=== PATIENT | male | born 1930 | race Caucasian/White ===

== ENCOUNTER → 2016-12-08 | Outpatient (CLI) | payer MEDICARE, BC ==
[~2016-12-08] MED LIST: ASPIRIN 32325 MG/TAB PO; ASPIRIN 81M81 MG/TA2 PO; B-121000 MCG PO; CARAFATE S1 GM/10 ML PO; CELEXA10 MG PO; CIPRO 250MG TA250 MG PO; COLACE 100100 MG/CAP PO; DIFLUCAN200 MG PO; DULCOLAX S10 MG/SUPP RC; FERRATE325 MG PO; FERROUS SU325 MG/TAB PO; HALCION0.25 MG PO; LIPITOR 40MG TA40 MG PO; MILK OF MA400 MG/52 PO; MIRALAX PA17 GM/Dose PO; MYLANTA 150 ML150 M1 PO; MYLANTA MAXIMU355 ML PO; NORCO 325 MG-51 TAB PO; OSCAL 500 TAB500 MG PO; PLAVIX 75MG TAB75 MG PO; PRILOSEC 20MG20 MG PO; PROTONIX20 MG PO; RAPAFLO8 MG PO; REMERON 15M15 MG/TA1 PO; ROBITUSSIN DM 105 ML PO; SENOKOT S 50 MG1 TAB PO; THERAGRAN TAB1 UDTAB PO; TYLENOL 325MG325 MG PO; VESICARE 5MG5 MG PO; VITAMIN B121000 MC2 PO; VITAMIN C500 MG PO; ZOCOR
[2016-12-08 10:37] LABS: BASO % 0.7 % (0.0-2.0); EOS # 0.1 (0.0-0.7); EOS % 2.2 % (0-4.0); GRAN # 2.6 (1.4-6.5); LYMPH # 0.9 (1.2-3.4); LYMPH % 22.9 % (20.0-51.0); MEAN CELL VOLUME 88 fl (80.0-100.0); MEAN CORPUSCULAR HGB CONC 34 g/dl (33.0-37.0); MEAN PLATELET VOLUME 10.8 fl (7.4-10.4); MONO # 0.4 (0.1-0.6); MONO % 8.7 % (1.7-9.3); PLATELET COUNT 164 K/mm3 (130-400); RED BLOOD COUNT 3.35 M/mm3 (4.20-5.60); REDCELL DISTRIBUTION WIDTH-CV 13.6 % (11.5-14.5)
[2016-12-08 10:40] LABS: HEMATOCRIT 29.4 % (42.0-52.0); MEAN CORPUSCULAR HEMOGLOBIN 30 pg (27.0-31.0)
[2016-12-08 11:36] LABS: ADJUSTED CALCIUM 9.5 mg/dL (8.4-10.2); BILIRUBIN,TOTAL 0.4 mg/dL (0.0-1.0); CALCIUM 8.7 mg/dL (8.4-10.2); CREATININE, serum 1.1 mg/dL (0.66-1.25); POTASSIUM 4.7 mmol/L (3.4-5.0)
== END ==
LOC: ZLAB.STJ 09:59
PROVIDERS: Internal Medicine
DX: D64.89 Other specified anemias (principal)

== ENCOUNTER → 2017-02-21 | Outpatient (REF) | LOC: ZLAB.STJ 09:35 | DX: Z01.89 Encounter for other specified special examinations (principal) ==

== ENCOUNTER 2017-11-28 18:33 | Emergency (ER) | payer MEDICARE, BC ==
[~2017-11-28] VITALS: Ht 170.2 cm; Wt 72.7 kg
[2017-11-28 19:33] LABS: BASO % 0.3 % (0.0-2.0); GRAN % 90.8 % (42.2-75.2); HEMOGLOBIN 12.3 g/dl (13.5-18.0); LYMPH # 0.3 (1.2-3.4); LYMPH % 4.3 % (20.0-51.0); MEAN CELL VOLUME 89 fl (80.0-100.0); MEAN CORPUSCULAR HEMOGLOBIN 30 pg (27.0-31.0); MEAN CORPUSCULAR HGB CONC 33 g/dl (33.0-37.0); MEAN PLATELET VOLUME 10.5 fl (7.4-10.4); MONO # 0.3 (0.1-0.6); MONO % 3.9 % (1.7-9.3); PLATELET COUNT 184 K/mm3 (130-400); RED BLOOD COUNT 4.15 M/mm3 (4.20-5.60); REDCELL DISTRIBUTION WIDTH-CV 13.8 % (11.5-14.5)
[2017-11-28 19:34] LABS: HEMATOCRIT 36.8 % (42.0-52.0)
[2017-11-28 19:40] LABS: ALBUMIN 4.6 gm/dL (3.5-5.0); BILIRUBIN,TOTAL 0.7 mg/dL (0.0-1.0); CALCIUM 9.8 mg/dL (8.4-10.2); CREATININE, serum 1.37 mg/dL (0.66-1.25); POTASSIUM 4.6 mmol/L (3.4-5.0); TOTAL PROTEIN 8.1 gm/dL (6.4-8.2)
[2017-11-28 20:26] LABS: STREP SCREEN NEGATIVE
[2017-11-28 20:36] LABS: INFLUENZA A POSITIVE; INFLUENZA B NEGATIVE
[2017-11-28] MEDS ORDERED: TAMIFLU 75MG75 MG PO (21:31)
[2017-11-28 21:58] VITALS: BP 147/71; PULSE 84
[2017-11-28 22:20] VITALS: TEMP 97.8
== END 2017-11-28 22:21 | disposition home or self-care (01) ==
LOC: COL.ER 18:33
PROVIDERS: Emergency Medicine
DX: J10.1 Influenza due to other identified influenza virus with other respiratory manifestations (principal); I25.10 Atherosclerotic heart disease of native coronary artery without angina pectoris; I25.2 Old myocardial infarction; E78.5 Hyperlipidemia, unspecified; Z85.46 Personal history of malignant neoplasm of prostate; Z86.73 Personal history of transient ischemic attack (TIA), and cerebral infarction without residual deficits; Z79.82 Long term (current) use of aspirin; Z95.5 Presence of coronary angioplasty implant and graft
CPT/HCPCS: J7030

== ENCOUNTER → 2018-02-14 | Outpatient (REF) ==
[~2018-02-14] MED LIST changes: +TAMIFLU 75MG75 MG PO
[2018-02-14 08:43] LABS: BASO % 0.9 % (0.0-2.0); EOS # 0.1 (0.0-0.7); EOS % 2.2 % (0-4.0); GRAN # 2.8 (1.4-6.5); GRAN % 61.9 % (42.2-75.2); HEMOGLOBIN 12.3 g/dl (13.5-18.0); LYMPH # 1.2 (1.2-3.4); LYMPH % 26.4 % (20.0-51.0); MEAN CELL VOLUME 88 fl (80.0-100.0); MEAN CORPUSCULAR HEMOGLOBIN 30 pg (27.0-31.0); MEAN CORPUSCULAR HGB CONC 34 g/dl (33.0-37.0); MEAN PLATELET VOLUME 11.2 fl (7.4-10.4); MONO # 0.4 (0.1-0.6); MONO % 7.9 % (1.7-9.3); PLATELET COUNT 177 K/mm3 (130-400); RED BLOOD COUNT 4.16 M/mm3 (4.20-5.60); REDCELL DISTRIBUTION WIDTH-CV 13.7 % (11.5-14.5)
[2018-02-14 08:51] LABS: HEMATOCRIT 36.5 % (42.0-52.0)
[2018-02-14 09:11] LABS: ALBUMIN 3.9 gm/dL (3.5-5.0); BILIRUBIN,TOTAL 0.3 mg/dL (0.0-1.0); CALCIUM 9.1 mg/dL (8.4-10.2); CREATININE, serum 1.25 mg/dL (0.66-1.25); POTASSIUM 4.9 mmol/L (3.4-5.0); TOTAL PROTEIN 7.1 gm/dL (6.4-8.2)
== END ==
LOC: ZLAB.STJ 08:33
PROVIDERS: Internal Medicine
DX: D64.9 Anemia, unspecified (principal)

== ENCOUNTER 2018-04-26 05:34 | Emergency (ER) | payer MEDICARE, BC ==
[~2018-04-26] VITALS: Ht 152 cm; Wt 56.8 kg
[2018-04-26 05:37] VITALS: TEMP 98.3
[2018-04-26 06:17] LABS: COLLECTION METHOD CLEAN CATCH
[2018-04-26 06:27] LABS: MUCOUS Present /lpf; PH 5 (5-8); SQUAMOUS EPITHELIAL None Seen /hpf; URINE APPEARANCE Hazy; URINE BACTERIA Rare /hpf; URINE BILIRUBIN Negative (NEGATIVE); URINE BLOOD 2+ (NEGATIVE); URINE COLOR Yellow; URINE GLUCOSE Negative (NEGATIVE); URINE KETONE Negative (NEGATIVE); URINE LEUKOCYTE ESTERASE 3+ (NEGATIVE); URINE NITRATE Positive (NEGATIVE); URINE PROTEIN(semi-quant) Negative (NEGATIVE); URINE UROBILINOGEN Negative (NEGATIVE)
[2018-04-26 06:33] LABS: BASO % 0.4 % (0.0-2.0); EOS # 0.1 (0.0-0.7); EOS % 0.8 % (0-4.0); GRAN # 5.1 (1.4-6.5); GRAN % 65.3 % (42.2-75.2); HEMATOCRIT 33.9 % (42.0-52.0); HEMOGLOBIN 11.6 g/dl (13.5-18.0); LYMPH # 2.2 (1.2-3.4); MEAN CELL VOLUME 88 fl (80.0-100.0); MEAN CORPUSCULAR HEMOGLOBIN 30 pg (27.0-31.0); MEAN CORPUSCULAR HGB CONC 34 g/dl (33.0-37.0); MEAN PLATELET VOLUME 9.4 fl (7.4-10.4); MONO # 0.4 (0.1-0.6); PLATELET COUNT 257 K/mm3 (130-400); RED BLOOD COUNT 3.85 M/mm3 (4.20-5.60); REDCELL DISTRIBUTION WIDTH-CV 13.5 % (11.5-14.5)
[2018-04-26 06:38] LABS: INR 1.2 (0.8-3.0); PROTHROMBIN TIME 13.1 SECONDS (9.7-12.8)
[2018-04-26 06:41] LABS: PARTIAL THROMBOPLASTIN TIME 65.9 SECONDS (26.0-37.0)
[2018-04-26 06:48] LABS: CREATININE, serum 1.31 mg/dL (0.66-1.25); POTASSIUM 4.5 mmol/L (3.4-5.0)
[2018-04-26 07:20] LABS: ALBUMIN 3.7 gm/dL (3.5-5.0); BILIRUBIN UNCONJUGATED 0.1 mg/dL (0.0-1.1); BILIRUBIN,DIRECT 0.3 mg/dL (0.0-0.4); BILIRUBIN,TOTAL 0.4 mg/dL (0.0-1.0); TOTAL PROTEIN 7.2 gm/dL (6.4-8.2)
[2018-04-26] MEDS ORDERED: OMNICEF 300MG300 MG PO (07:30)
[2018-04-26 08:40] VITALS: BP 167/72; PULSE 85
== END 2018-04-26 08:48 | disposition home or self-care (01) ==
LOC: COL.ER 05:34
PROVIDERS: Emergency Medicine
DX: S01.81XA Laceration without foreign body of other part of head, initial encounter (principal); I25.10 Atherosclerotic heart disease of native coronary artery without angina pectoris; N39.0 Urinary tract infection, site not specified; Z86.73 Personal history of transient ischemic attack (TIA), and cerebral infarction without residual deficits; Z23 Encounter for immunization; Z79.82 Long term (current) use of aspirin; Z79.02 Long term (current) use of antithrombotics/antiplatelets; W19.XXXA Unspecified fall, initial encounter; W22.8XXA Striking against or struck by other objects, initial encounter
CPT/HCPCS: J0696; J7050

== ENCOUNTER 2018-06-13 17:14 | Emergency (ER) | payer MEDICARE, BC ==
[~2018-06-13] VITALS: Ht 165.1 cm; Wt 66.4 kg
[~2018-06-13 17:14] MED LIST changes: +OMNICEF 300MG300 MG PO
[2018-06-13 17:21] VITALS: TEMP 100.7
[2018-06-13] MEDS ORDERED: TYLENOL 500MG500 MG PO (18:18)
[2018-06-13] MEDS ORDERED: IMODIUM 2MG CAPS2 MG PO (18:21)
[2018-06-13] MEDS ORDERED: DEBROX OT (18:22)
[2018-06-13] MEDS ORDERED: THERA1 TAB PO (18:23)
[2018-06-13 18:24] LABS: BASO % 0.5 % (0.0-2.0); EOS # 0.1 (0.0-0.7); EOS % 1.2 % (0-4.0); GRAN # 4.8 (1.4-6.5); GRAN % 74.1 % (42.2-75.2); LYMPH # 0.8 (1.2-3.4); LYMPH % 12.9 % (20.0-51.0); MEAN CELL VOLUME 91 fl (80.0-100.0); MEAN CORPUSCULAR HGB CONC 33 g/dl (33.0-37.0); MEAN PLATELET VOLUME 10.5 fl (7.4-10.4); MONO # 0.7 (0.1-0.6); PLATELET COUNT 206 K/mm3 (130-400); RED BLOOD COUNT 3.16 M/mm3 (4.20-5.60); REDCELL DISTRIBUTION WIDTH-CV 13.7 % (11.5-14.5)
[2018-06-13] MEDS ORDERED: VITAMIN B-1000 MCG/T PO (18:24)
[2018-06-13] MEDS ORDERED: RISPERDAL 1M1 MG/TAB (18:25)
[2018-06-13 18:30] LABS: HEMATOCRIT 28.6 % (42.0-52.0); HEMOGLOBIN 9.4 g/dl (13.5-18.0); MEAN CORPUSCULAR HEMOGLOBIN 30 pg (27.0-31.0)
[2018-06-13 18:39] LABS: ALBUMIN 3.6 gm/dL (3.5-5.0); BILIRUBIN,TOTAL 0.4 mg/dL (0.0-1.0); CALCIUM 8.7 mg/dL (8.4-10.2); CREATININE, serum 1.43 mg/dL (0.66-1.25); POTASSIUM 4.5 mmol/L (3.4-5.0); TOTAL PROTEIN 6.9 gm/dL (6.4-8.2)
[2018-06-13 19:26] LABS: INR 1.3 (0.8-3.0); PROTHROMBIN TIME 14.4 SECONDS (9.7-12.8)
[2018-06-13 19:46] LABS: TROPONIN-I 4.88 ng/mL (0.000-0.034)
[2018-06-13 20:15] LABS: ARTERIAL BLD GAS O2 SATURATION 88.9 % (92-100); ARTERIAL BLD GAS TCO2 CT 24.1; ARTERIAL BLOOD GAS BASE EXCESS -2.5 (-2-2); ARTERIAL BLOOD GAS HCO3 22.8 meq/L (22-26); ARTERIAL BLOOD GAS PCO2 41.3 mmHg (35-45); ARTERIAL BLOOD GAS PO2 62.8 mmHg (80-100); ARTERIAL BLOOD GAS pH 7.36 (7.35-7.45)
[2018-06-13 21:09] LABS: COLLECTION METHOD CLEAN CATCH
[2018-06-13 21:20] LABS: PH 5 (5-8); SQUAMOUS EPITHELIAL None Seen /hpf; URINE APPEARANCE Hazy; URINE BACTERIA None Seen /hpf; URINE BILIRUBIN Negative (NEGATIVE); URINE BLOOD Negative (NEGATIVE); URINE COLOR Yellow; URINE GLUCOSE Negative (NEGATIVE); URINE KETONE Negative (NEGATIVE); URINE LEUKOCYTE ESTERASE Negative (NEGATIVE); URINE NITRATE Negative (NEGATIVE); URINE PROTEIN(semi-quant) Negative (NEGATIVE); URINE RBC 0-2 /hpf; URINE UROBILINOGEN Negative (NEGATIVE)
[2018-06-13 22:37] VITALS: BP 104/50; PULSE 72
== END 2018-06-13 22:43 | disposition short-term general hospital (02) ==
LOC: COL.ER 17:14
PROVIDERS: Emergency Medicine
DX: J69.0 Pneumonitis due to inhalation of food and vomit (principal); I21.4 Non-ST elevation (NSTEMI) myocardial infarction; I25.10 Atherosclerotic heart disease of native coronary artery without angina pectoris; E78.5 Hyperlipidemia, unspecified; Z86.73 Personal history of transient ischemic attack (TIA), and cerebral infarction without residual deficits; Z98.890 Other specified postprocedural states; Z85.46 Personal history of malignant neoplasm of prostate; Z95.5 Presence of coronary angioplasty implant and graft; Z79.82 Long term (current) use of aspirin; Z79.02 Long term (current) use of antithrombotics/antiplatelets
CPT/HCPCS: J0696; J1644; J7030

== ENCOUNTER → 2018-08-20 | Outpatient (CLI) | payer MEDICARE, BC ==
[~2018-08-20] MED LIST changes: +DEBROX OT; +IMODIUM 2MG CAPS2 MG PO; +RISPERDAL 1M1 MG/TAB; +THERA1 TAB PO; +TYLENOL 500MG500 MG PO; +VITAMIN B-1000 MCG/T PO
[2018-08-20 14:24] LABS: COLLECTION METHOD CLEAN CATCH
[2018-08-20 14:33] LABS: PH 5 (5-8); URINE APPEARANCE Turbid; URINE BACTERIA Moderate /hpf; URINE BILIRUBIN Negative (NEGATIVE); URINE BLOOD 3+ (NEGATIVE); URINE COLOR Amber; URINE GLUCOSE Negative (NEGATIVE); URINE KETONE Negative (NEGATIVE); URINE LEUKOCYTE ESTERASE 2+ (NEGATIVE); URINE NITRATE Negative (NEGATIVE); URINE PROTEIN(semi-quant) 2+ (NEGATIVE); URINE RBC >50 /hpf; URINE UROBILINOGEN Negative (NEGATIVE)
== END ==
LOC: ZLAB.STJ 14:17
PROVIDERS: Family Medicine
DX: N39.0 Urinary tract infection, site not specified (principal)

== ENCOUNTER → 2018-09-01 | Outpatient (CLI) | payer MEDICARE, BC ==
[~2018-09-01] MED LIST changes: +ALMACONE 360 M360 ML PO; +ATROVENT I0.2 MG/1 M IH; +BIOTENE ORALBAL42 GM MM; +GOOD NEIGH1200 MG/15 PO; +LOPRESSOR 225 MG/TAB PO; +PHENERGAN 25 TA25 MG PO; +RISPERDAL 0.5M0.5 MG PO; +SENOKOT8.6 MG PO; +TESSALON P100 MG/CAP PO
[2018-09-01 19:34] LABS: BASO # 0.1 (0.0-0.2); BASO % 0.9 % (0.0-2.0); EOS # 0.2 (0.0-0.7); EOS % 3.1 % (0-4.0); GRAN # 4.4 (1.4-6.5); GRAN % 69.1 % (42.2-75.2); LYMPH # 1.2 (1.2-3.4); LYMPH % 19.2 % (20.0-51.0); MEAN CELL VOLUME 90 fl (80.0-100.0); MEAN CORPUSCULAR HGB CONC 32 g/dl (33.0-37.0); MEAN PLATELET VOLUME 10.5 fl (7.4-10.4); MONO # 0.5 (0.1-0.6); MONO % 7.2 % (1.7-9.3); PLATELET COUNT 309 K/mm3 (130-400); RED BLOOD COUNT 2.85 M/mm3 (4.20-5.60); REDCELL DISTRIBUTION WIDTH-CV 15.9 % (11.5-14.5)
[2018-09-01 19:36] LABS: HEMATOCRIT 25.5 % (42.0-52.0); HEMOGLOBIN 8.1 g/dl (13.5-18.0); MEAN CORPUSCULAR HEMOGLOBIN 28 pg (27.0-31.0)
== END ==
LOC: ZLAB.STJ 19:10
PROVIDERS: Internal Medicine
DX: K92.2 Gastrointestinal hemorrhage, unspecified (principal); N39.0 Urinary tract infection, site not specified

== ENCOUNTER → 2018-09-04 | Outpatient (CLI) | payer MEDICARE, BC ==
[~2018-09-04] MED LIST changes: +CEFTIN 250250 MG/TAB PO; +FERRO-TIME325 MG PO
[2018-09-04 10:32] LABS: COLLECTION METHOD CLEAN CATCH
[2018-09-04 10:47] LABS: BASO % 0.5 % (0.0-2.0); EOS # 0.2 (0.0-0.7); EOS % 3.7 % (0-4.0); GRAN # 3.7 (1.4-6.5); GRAN % 67.4 % (42.2-75.2); LYMPH # 1.1 (1.2-3.4); LYMPH % 20.9 % (20.0-51.0); MEAN CELL VOLUME 89 fl (80.0-100.0); MEAN CORPUSCULAR HGB CONC 32 g/dl (33.0-37.0); MEAN PLATELET VOLUME 10.6 fl (7.4-10.4); MONO # 0.4 (0.1-0.6); MONO % 7.1 % (1.7-9.3); PLATELET COUNT 284 K/mm3 (130-400); RED BLOOD COUNT 2.75 M/mm3 (4.20-5.60); REDCELL DISTRIBUTION WIDTH-CV 15.8 % (11.5-14.5)
[2018-09-04 10:54] LABS: HEMATOCRIT 24.4 % (42.0-52.0); HEMOGLOBIN 7.7 g/dl (13.5-18.0); MEAN CORPUSCULAR HEMOGLOBIN 28 pg (27.0-31.0)
[2018-09-04 11:17] LABS: MUCOUS Present /lpf; PH 5 (5-8); SQUAMOUS EPITHELIAL None Seen /hpf; URINE APPEARANCE Turbid; URINE BACTERIA Moderate /hpf; URINE BILIRUBIN Negative (NEGATIVE); URINE BLOOD 2+ (NEGATIVE); URINE COLOR Amber; URINE GLUCOSE Negative (NEGATIVE); URINE KETONE Negative (NEGATIVE); URINE LEUKOCYTE ESTERASE 2+ (NEGATIVE); URINE NITRATE Negative (NEGATIVE); URINE PROTEIN(semi-quant) 2+ (NEGATIVE); URINE RBC None Seen /hpf; URINE UROBILINOGEN Negative (NEGATIVE)
== END ==
LOC: ZLAB.STJ 09:57
PROVIDERS: Internal Medicine
DX: I10 Essential (primary) hypertension (principal); R32 Unspecified urinary incontinence

== ENCOUNTER 2018-09-15 21:28 | Emergency (ER) | payer MEDICARE, BC ==
[~2018-09-15] VITALS: Ht 162.6 cm; Wt 63.6 kg
[~2018-09-15 21:28] MED LIST changes: +MIRTAZAPINE7.5 MG PO; +OS-CAL 500 + D1 TAB PO; -REMERON 15M15 MG/TA1 PO
[2018-09-15 21:30] VITALS: TEMP 98.6
[2018-09-15 22:04] LABS: BASO % 0.8 % (0.0-2.0); EOS # 0.3 (0.0-0.7); EOS % 5.2 % (0-4.0); GRAN # 3.3 (1.4-6.5); GRAN % 63.4 % (42.2-75.2); LYMPH # 1.2 (1.2-3.4); LYMPH % 22.8 % (20.0-51.0); MEAN CELL VOLUME 93 fl (80.0-100.0); MEAN CORPUSCULAR HGB CONC 30 g/dl (33.0-37.0); MEAN PLATELET VOLUME 9.3 fl (7.4-10.4); MONO # 0.4 (0.1-0.6); PLATELET COUNT 269 K/mm3 (130-400); RED BLOOD COUNT 2.71 M/mm3 (4.20-5.60); REDCELL DISTRIBUTION WIDTH-CV 16.5 % (11.5-14.5)
[2018-09-15 22:11] LABS: ALANINE AMINOTRANSFERASE 28 U/L (21-72); ALBUMIN 2.8 gm/dL (3.5-5.0); ALKALINE PHOSPHATASE 95 U/L (50-136); ANION GAP 4 mmol/L (7-16); AST,SGOT 23 U/L (15-37); BILIRUBIN,TOTAL < 0.1 mg/dL (0.0-1.0); BLOOD UREA NITROGEN 22 mg/dL (9-20); CALCIUM 8.2 mg/dL (8.4-10.2); CARBON DIOXIDE 27 mmol/L (22-30); CHLORIDE 108 mmol/L (98-107); CREATININE, serum 1.13 mg/dL (0.66-1.25); GLUCOSE 99 mg/dL (74-106); POTASSIUM 4.4 mmol/L (3.4-5.0); SODIUM 139 mmol/L (137-145); TOTAL PROTEIN 5.8 gm/dL (6.4-8.2)
[2018-09-15 22:21] LABS: HEMATOCRIT 25.3 % (42.0-52.0); HEMOGLOBIN 7.7 g/dl (13.5-18.0); MEAN CORPUSCULAR HEMOGLOBIN 28 pg (27.0-31.0)
[2018-09-15] MEDS ORDERED: CENTANY2% TOP (22:42)
[2018-09-15] MEDS ORDERED: NORCO 325 MG-51 TAB PO (22:58)
[2018-09-16 00:04] LABS: COLLECTION METHOD CATHETER
[2018-09-16 00:17] LABS: MUCOUS Present /lpf; PH 5 (5-8); SQUAMOUS EPITHELIAL None Seen /hpf; URINE APPEARANCE Clear; URINE BACTERIA None Seen /hpf; URINE BILIRUBIN Negative (NEGATIVE); URINE BLOOD Negative (NEGATIVE); URINE COLOR Amber; URINE GLUCOSE Negative (NEGATIVE); URINE KETONE Negative (NEGATIVE); URINE LEUKOCYTE ESTERASE Trace (NEGATIVE); URINE NITRATE Positive (NEGATIVE); URINE PROTEIN(semi-quant) Negative (NEGATIVE); URINE UROBILINOGEN >=4.0 mg/dL (NEGATIVE)
[2018-09-16] MEDS ORDERED: BACTRIM DS 8001 TAB PO (00:33)
[2018-09-16 02:30] VITALS: BP 136/70; PULSE 77
== END 2018-09-16 02:30 | disposition home or self-care (01) ==
LOC: COL.ER 21:28
PROVIDERS: Emergency Medicine; Family Medicine
DX: L89.229 Pressure ulcer of left hip, unspecified stage (principal); N39.0 Urinary tract infection, site not specified; R33.9 Retention of urine, unspecified; Z79.82 Long term (current) use of aspirin
CPT/HCPCS: A4216; J0696; J7030

== ENCOUNTER → 2018-09-21 | Outpatient (REF) ==
[~2018-09-21] MED LIST changes: +BACTRIM DS 8001 TAB PO; +CENTANY2% TOP
[2018-09-21 11:44] LABS: ALBUMIN 3.2 gm/dL (3.5-5.0); BILIRUBIN,TOTAL 0.2 mg/dL (0.0-1.0); CALCIUM 8.8 mg/dL (8.4-10.2); CHOLESTEROL RISK RATIO 5.8; CREATININE, serum 1.7 mg/dL (0.66-1.25); POTASSIUM 5.6 mmol/L (3.4-5.0); TOTAL PROTEIN 6.5 gm/dL (6.4-8.2)
== END ==
LOC: ZLAB.STJ 11:16
PROVIDERS: Internal Medicine Cardiovascular Disease
DX: E78.2 Mixed hyperlipidemia (principal)

== ENCOUNTER 2018-09-30 22:42 | Emergency (ER) | payer MEDICARE, BC ==
[~2018-09-30] VITALS: Ht 162.6 cm; Wt 61.4 kg
[2018-09-30 22:48] VITALS: TEMP 98.1
[2018-09-30 23:28] LABS: BASO % 0.6 % (0.0-2.0); EOS # 0.3 (0.0-0.7); EOS % 4.2 % (0-4.0); GRAN # 4.2 (1.4-6.5); GRAN % 65.9 % (42.2-75.2); HEMATOCRIT 27.5 % (42.0-52.0); HEMOGLOBIN 8.7 g/dl (13.5-18.0); LYMPH # 1.4 (1.2-3.4); LYMPH % 21.9 % (20.0-51.0); MEAN CELL VOLUME 91 fl (80.0-100.0); MEAN CORPUSCULAR HEMOGLOBIN 29 pg (27.0-31.0); MEAN CORPUSCULAR HGB CONC 32 g/dl (33.0-37.0); MEAN PLATELET VOLUME 8.8 fl (7.4-10.4); MONO # 0.4 (0.1-0.6); MONO % 6.9 % (1.7-9.3); PLATELET COUNT 352 K/mm3 (130-400); RED BLOOD COUNT 3.03 M/mm3 (4.20-5.60); REDCELL DISTRIBUTION WIDTH-CV 15.8 % (11.5-14.5)
[2018-09-30 23:38] LABS: CALCIUM 8.9 mg/dL (8.4-10.2); CREATININE, serum 1.95 mg/dL (0.66-1.25); POTASSIUM 5.2 mmol/L (3.4-5.0)
[2018-10-01] MEDS ORDERED: VITAMIN C500 MG PO (00:05)
[2018-10-01] MEDS ORDERED: IMODIUM A-D2 MG PO (00:09)
[2018-10-01 01:08] LABS: COLLECTION METHOD CATHETER
[2018-10-01 01:42] LABS: BUDDING YEAST Present /hpf; HYALINE CAST >12 /lpf; MUCOUS Present /lpf; PH 5 (5-8); SQUAMOUS EPITHELIAL 0-2 /hpf; URINE APPEARANCE Turbid; URINE BACTERIA Rare /hpf; URINE BILIRUBIN Negative (NEGATIVE); URINE BLOOD 2+ (NEGATIVE); URINE COLOR Yellow; URINE GLUCOSE Negative (NEGATIVE); URINE KETONE Negative (NEGATIVE); URINE LEUKOCYTE ESTERASE 3+ (NEGATIVE); URINE NITRATE Negative (NEGATIVE); URINE PROTEIN(semi-quant) 2+ (NEGATIVE); URINE RBC >50 /hpf; URINE UROBILINOGEN Negative (NEGATIVE)
[2018-10-01] MEDS ORDERED: BACTRIM DS 8001 TAB PO (02:10)
[2018-10-01 03:15] VITALS: BP 127/56; PULSE 88
== END 2018-10-01 03:17 | disposition home or self-care (01) ==
LOC: COL.ER 22:42
PROVIDERS: Emergency Medicine
DX: E86.0 Dehydration (principal); N39.0 Urinary tract infection, site not specified; I10 Essential (primary) hypertension; I25.10 Atherosclerotic heart disease of native coronary artery without angina pectoris; I25.2 Old myocardial infarction; F03.90 Unspecified dementia, unspecified severity, without behavioral disturbance, psychotic disturbance, mood disturbance, and anxiety; Z86.73 Personal history of transient ischemic attack (TIA), and cerebral infarction without residual deficits; Z98.890 Other specified postprocedural states; Z85.46 Personal history of malignant neoplasm of prostate
CPT/HCPCS: A4216; J0696

== ENCOUNTER 2018-10-26 11:00 | Day surgery (SDC) | payer MEDICARE, BC ==
[~2018-10-26] VITALS: Ht 165.1 cm; Wt 54.8 kg
[~2018-10-26 11:00] MED LIST changes: +IMODIUM A-D2 MG PO
[2018-10-26 11:46] VITALS: BP 96/51; PULSE 73; TEMP 97.5
[2018-10-26] MEDS ORDERED: PROTONIX20 MG PO (11:46)
== END 2018-10-26 13:50 | disposition home or self-care (01) ==
LOC: SDCO 11:00
DX: R33.9 Retention of urine, unspecified (principal); F03.90 Unspecified dementia, unspecified severity, without behavioral disturbance, psychotic disturbance, mood disturbance, and anxiety; I25.10 Atherosclerotic heart disease of native coronary artery without angina pectoris; E78.00 Pure hypercholesterolemia, unspecified; E78.5 Hyperlipidemia, unspecified; G47.00 Insomnia, unspecified; Z79.82 Long term (current) use of aspirin; Z85.46 Personal history of malignant neoplasm of prostate; Z92.3 Personal history of irradiation; Z86.73 Personal history of transient ischemic attack (TIA), and cerebral infarction without residual deficits; Z80.3 Family history of malignant neoplasm of breast; Z82.49 Family history of ischemic heart disease and other diseases of the circulatory system
CPT/HCPCS: A4314

== ENCOUNTER 2018-11-27 15:33 | Day surgery (SDC) | payer MEDICARE, BC ==
[~2018-11-27] VITALS: Ht 157.5 cm; Wt 61.4 kg
[2018-11-27] MEDS ORDERED: NORCO 325 MG-51 TAB PO (16:56)
[2018-11-27] MEDS ORDERED: VOLTAREN GEL 1%1 TU TP (17:02)
[2018-11-27 17:24] VITALS: BP 128/58; PULSE 88; TEMP 98.3
--- NOTE | 2018-11-27 17:50 | NUR ---
PROCEDURE COMPLETE. PATIENT MOANING. RANDALL CARE DONE AND BLOOD NOTED AT TIP OF PENIS. NEW DEPENDS PLACED. DRESSED BY STAFF. 16 UPPER SIOUX CATHETER PLACED WITH 10CC BALLOON. TRANSFERED TO BY TOTAL LIFT. ONCE BACK IN CHAIR, PATIENT SLEEPING.
--- NOTE | 2018-11-27 18:07 | NUR ---
[facility]IA [facility] CALLED TO MOLD CLAMPER PATIENT. PATIENT CONTINUES TO SLEEP AND DON STEPHIE CARABALLO WITH HIM SITTING AT DESK WAITING FOR RIDE.
--- NOTE | 2018-11-27 18:17 | NUR ---
RECEIVED DISCHARGE INSTRUCTIONS FROM DR SILVER. PAPERS SENT BY RESIDENTIAL SIGNED BY DR SILVER AND SENT BACK TO RESIDENTIAL. DURAN CARABALLO IS WITH PATIENT AT ER ENTRANCE WAITING FOR VIA [facility].
== END 2018-11-27 18:27 ==
LOC: COL.ER 15:33 → SDCO 15:35
DX: N32.89 Other specified disorders of bladder (principal); R33.8 Other retention of urine; Z86.73 Personal history of transient ischemic attack (TIA), and cerebral infarction without residual deficits; Z85.46 Personal history of malignant neoplasm of prostate; Z92.3 Personal history of irradiation; F03.90 Unspecified dementia, unspecified severity, without behavioral disturbance, psychotic disturbance, mood disturbance, and anxiety; I25.10 Atherosclerotic heart disease of native coronary artery without angina pectoris; E78.5 Hyperlipidemia, unspecified; Z79.02 Long term (current) use of antithrombotics/antiplatelets; Z79.82 Long term (current) use of aspirin; Z79.899 Other long term (current) drug therapy
CPT/HCPCS: C1769